=== PATIENT | female | born 1965 | race Caucasian/White ===

== ENCOUNTER → 2022-02-02 | Outpatient (CLI) | payer OTHER ==
[2022-02-03 15:11] LABS: HPV 16 Negative (Negative); HPV 18 Negative (Negative); HPV OTHER HR TYPES Negative (Negative)
== END | disposition home or self-care (01) ==
LOC: LAB 15:00 → LAB SHORT 15:00
PROVIDERS: Obstetrics & Gynecology
DX: Z12.4 Encounter for screening for malignant neoplasm of cervix (principal)
CPT/HCPCS: 87624; G0123

== ENCOUNTER 2023-01-13 17:46 | Emergency (ER) | payer OTHER ==
[~2023-01-13] VITALS: Ht 177.8 cm; Wt 133.8 kg
[2023-01-13] MEDS ORDERED: Benazepril HCl10 MG PO (19:04)
[2023-01-13] MEDS ORDERED: IBUP800 PO (20:52)
[2023-01-13 21:01] VITALS: BP 143/82
== END 2023-01-13 21:13 | disposition home or self-care (01) ==
LOC: ER 17:46
DX: S42.202A Unspecified fracture of upper end of left humerus, initial encounter for closed fracture (principal); S43.015A Anterior dislocation of left humerus, initial encounter; W18.30XA Fall on same level, unspecified, initial encounter; Z88.5 Allergy status to narcotic agent; I10 Essential (primary) hypertension
CPT/HCPCS: 23650; 73030; 99283-25; A9270; J2704; J7030

== ENCOUNTER → 2023-02-09 | Outpatient (CLI) | payer OTHER ==
[~2023-02-09] MED LIST: Benazepril HCl10 MG PO; IBUP800 PO
[2023-02-09 18:49] LABS: Microalb/Creat Ratio UR, Rand Unable to Calculate mg/g (0.000-30.000); Microalbumin, Random Urine <5.000 mg/L (0.000-20.000)
== END | disposition home or self-care (01) ==
LOC: LAB 15:05 → LAB SHORT 15:05
PROVIDERS: Family Medicine
DX: E11.69 Type 2 diabetes mellitus with other specified complication (principal)
CPT/HCPCS: 82043; 82570